=== PATIENT | female | born 1960 | race Caucasian/White ===

== ENCOUNTER 2016-04-20 18:49 | Emergency (ER) | payer OTHER ==
--- NOTE | 2016-04-20 19:15 | ER Document Report ---
ED Medical Screen (RME) - General Stated Complaint: BLOOD SUGAR PROBLEM Time seen by provider: 19:10 Mode of Arrival: Ambulatory Information source: Patient Notes: 55-year-old female presents to ED for elevated blood sugar she is a diabetic type II she states she's taken metformin and Lantus insulin. She states she's had blood sugars as high as 500 at 1830. Her blood sugar has. read on a machine and today he just said high. Blood sugar at noon was 342. The meter read high in RME. The recheck was 562. She states she has been dizzy and thirsty and frequent urination. I have greeted and performed a rapid initial assessment of this patient. A comprehensive ED assessment and evaluation of the patient, analysis of test results and completion of medical decision making process will be conducted by an additional ED providers. TRAVEL OUTSIDE OF THE [place] IN LAST 30 DAYS: No - Related Data Allergies/Adverse Reactions: aspirin [Aspirin] Allergy (Unknown, Verified 04/20/16 19:10) Penicillins Allergy (Unknown, Verified 04/20/16 19:10) prednisone [Prednisone] Allergy (Verified 04/20/16 19:10) Past Medical History - Past Medical History Cardiac Medical History: Reports: Hx Coronary Artery Disease, Hx Hypercholesterolemia, Hx Hypertension Pulmonary Medical History: Reports: Hx Asthma - SINCE AGE 24, Hx COPD Neurological Medical History: Reports: Hx Migraine Endocrine Medical History: Reports: Hx Diabetes Mellitus Type 2 Malignancy Medical History: Reports: Hx Ovarian Cancer GI Medical History: Reports: Hx Gastroesophageal Reflux Disease, Hx Hiatal Hernia - DX MAR 2011, Hx Ulcer Psychiatric Medical History: Reports: Hx Depression Past Surgical History: Reports: Hx Abdominal Surgery - APPENDIX, Hx Appendectomy , Hx Cardiac Catheterization, Hx Cholecystectomy, Hx Gynecologic Surgery, Hx Hysterectomy - Immunizations Immunizations up to date: Yes Hx Diphtheria, Pertussis, Tetanus Vaccination: Yes
[2016-04-20 19:34] LABS: ABSOLUTE BASOPHILS # (AUTO) 0.1 10^3/uL (0.0-0.2); ABSOLUTE EOSINOPHILS # (AUTO) 0.2 10^3/uL (0.0-0.6); ABSOLUTE MONOCYTES (AUTO) 0.7 10^3/uL (0.1-1.4); ABSOLUTE NEUT (AUTO) 5.2 10^3/uL (1.7-8.2); BASOPHILS % (AUTO) 0.6 % (0-2); HEMATOCRIT 42.7 % (36.0-47.0); HEMOGLOBIN 14.3 g/dL (12.0-15.5); HGB HCT DIFFERENCE 0.2; LYMPHOCYTES % (AUTO) 32.6 % (13-45); MEAN CORPUSCULAR HEMOGLOBIN 29.4 pg (27.0-33.4); MEAN CORPUSCULAR HGB CONC 33.5 g/dL (32.0-36.0); MEAN CORPUSCULAR VOLUME 88 fl (80-97); MONOCYTES % (AUTO) 7.3 % (3-13); RED BLOOD COUNT 4.87 10^6/uL (3.72-5.28); RED CELL DISTRIBUTION WIDTH 13.3 % (11.5-14.0); SEGMENTED NEUTROPHILS % (AUTO) 57.5 % (42-78); WHITE BLOOD COUNT 9.1 10^3/uL (4.0-10.5)
[2016-04-20] MEDS: NORMAL SALINE 1000 ML 1,000 ML IV PRN ×2 (19:34→21:00)
[2016-04-20 19:50] LABS: ALANINE AMINOTRANSFERASE 90 U/L (9-52); ALBUMIN 4.3 g/dL (3.5-5.0); ALKALINE PHOSPHATASE 184 U/L (38-126); ANION GAP 14 (5-19); ASPARTATE AMINO TRANSFERASE 40 U/L (14-36); BILIRUBIN,TOTAL 0.8 mg/dL (0.2-1.3); BLOOD UREA NITROGEN 10 mg/dL (7-20); CALCIUM 9.4 mg/dL (8.4-10.2); CARBON DIOXIDE 26 mmol/L (22-30); CHLORIDE 92 mmol/L (98-107); CREATININE RESULT 0.62 mg/dL (0.52-1.25); POTASSIUM 3.3 mmol/L (3.6-5.0); SODIUM 132.4 mmol/L (137-145)
[2016-04-20 19:56] LABS: APPEARANCE,URINE CLEAR; BILIRUBIN,URINE NEGATIVE (NEGATIVE); GLUCOSE, URINE >=500 mg/dL (NEGATIVE); KETONES,URINE NEGATIVE (NEGATIVE); LEUKOCYTE ESTERASE,URINE NEGATIVE (NEGATIVE); NITRITE,URINE NEGATIVE (NEGATIVE); PROTEIN,URINE NEGATIVE (NEGATIVE); URINE SPECIFIC GRAVITY 1.029; UROBILINOGEN,URINE NEGATIVE mg/dL (<2.0)
[2016-04-20 19:58] LABS: GLUCOSE 625 mg/dL (75-110)
[2016-04-20] MEDS ORDERED: INSULIN REG, HUMAN 100 UNIT/ML 3 ML VIAL (PYX) IV ONE (20:49)
--- NOTE | 2016-04-20 21:47 | ER Document Report ---
ED General - General Mode of Arrival: Ambulatory Information source: Patient TRAVEL OUTSIDE OF THE [place] IN LAST 30 DAYS: No - HPI Onset: Other - see HPI <ANDI WILDER - Last Filed: 04/20/16 22:09> <BEAN ZAPIEN - Last Filed: 04/20/16 22:20> - General Chief Complaint: High Blood Sugar Stated Complaint: BLOOD SUGAR PROBLEM Notes: Patient is a 55-year-old female presenting to the emergency department with complaints of high blood glucose levels. Patient has recently been sick with a cough, congestion, and vomiting. Patient states that she is not better the last 4 days. Patient states tonight she felt very woozy and her vision was somewhat blurry. At approximately 1800 tonight her glucose meter said her blood glucose was "too high." Patient states that yesterday her blood sugar was in the 200s. Patient has had her same normal diet. Patient has a slight fever. Patient states that she still has a cough. Otherwise she is feeling much better from been sick. Patient also complains of some dysuria and frequency. Patient takes metformin and Lantus (at night) for her diabetes mellitus. (ANDI WILDER) - Related Data Allergies/Adverse Reactions: aspirin [Aspirin] Allergy (Unknown, Verified 04/20/16 19:10) Penicillins Allergy (Unknown, Verified 04/20/16 19:10) prednisone [Prednisone] Allergy (Verified 04/20/16 19:10) Past Medical History - General Information source: Patient - Social History Smoking Status: Current Every Day Smoker Chew tobacco use (# tins/day): No Frequency of alcohol use: None Drug Abuse: None Family History: None Patient has suicidal ideation: No Patient has homicidal ideation: No - Past Medical History Cardiac Medical History: Reports: Hx Coronary Artery Disease, Hx Hypercholesterolemia, Hx Hypertension Pulmonary Medical History: Reports: Hx Asthma - SINCE AGE 24, Hx COPD Neurological Medical History: Reports: Hx Migraine Endocrine Medical History: Reports: Hx Diabetes Mellitus Type 2 Malignancy Medical History: Reports: Hx Ovarian Cancer GI Medical History: Reports: Hx Gastroesophageal Reflux Disease, Hx Hiatal Hernia - DX MAR 2011, Hx Ulcer Psychiatric Medical History: Reports: Hx Depression Past Surgical History: Reports: Hx Abdominal Surgery - APPENDIX, Hx Appendectomy , Hx Cardiac Catheterization, Hx Cholecystectomy, Hx Gynecologic Surgery, Hx Hysterectomy - Immunizations Immunizations up to date: Yes Hx Diphtheria, Pertussis, Tetanus Vaccination: Yes Hx Pneumococcal Vaccination: 12/24/11 <DAMIONSTEPHANIEANDI - Last Filed: 04/20/16 22:09> Review of Systems - Review of Systems Constitutional: See HPI, Fever, Malaise EENT: See HPI, Blurred vision Cardiovascular: No symptoms reported, Dizziness Respiratory: See HPI, Cough Gastrointestinal: No symptoms reported Genitourinary: No symptoms reported Female Genitourinary: No symptoms reported Musculoskeletal: No symptoms reported Skin: No symptoms reported Hematologic/Lymphatic: No symptoms reported Neurological/Psychological: No symptoms reported -: Yes All other systems reviewed and negative <ANDI WILDER - Last Filed: 04/20/16 22:09> Physical Exam - Vital signs Interpretation: Normal - General General appearance: Appears well, Alert In distress: Mild - HEENT Head: Normocephalic, Atraumatic Eyes: Normal Pupils: PERRL Mucous membranes: Dry - Respiratory Respiratory status: No respiratory distress Chest status: Nontender Breath sounds: Normal Chest palpation: Normal - Cardiovascular Rhythm: Regular Heart sounds: Normal auscultation Murmur: No - Abdominal Inspection: Normal Distension: No distension Bowel sounds: Normal Tenderness: Nontender Organomegaly: No organomegaly - Back Back: Tender - Tenderness to palpation to the upper left back - Extremities General upper extremity: Normal inspection, Normal ROM, Normal strength General lower extremity: Normal inspection, Normal ROM, Normal strength - Neurological Neuro grossly intact: Yes Cognition: Normal Orientation: AAOx4 [place] Coma Scale Eye Opening: Spontaneous [place] Coma Scale Verbal: Oriented [place] Coma Scale Motor: Obeys Commands Kar[place] Coma Scale Total: 15 Speech: Normal - Psychological Associated symptoms: Normal affect, Normal mood - Skin Skin Temperature: Warm Skin Moisture: Dry <ANDI WILDER - Last Filed: 04/20/16 22:09> Course - Laboratory Result Diagrams: 04/20/16 19:23 04/20/16 19:23 <ANDI WILDER - Last Filed: 04/20/16 22:09> - Laboratory Result Diagrams: 04/20/16 19:23 04/20/16 19:23 - Diagnostic Test Radiology reviewed: Image reviewed, Reports reviewed <BEAN ZAPIEN - Last Filed: 04/20/16 22:20> - Re-evaluation Re-evalutation: 04/20/16 22:19 Patient with hyperglycemia but no evidence for acidosis. Patient has received fluids and insulin and feels much better. No evidence for bacterial infection. Patient has had a cough but states that she has been improving. Patient takes Lantus at night and also metformin. Patient states that she was eating chocolate today which usually does not do. Blood sugar currently is at the patient's baseline. Patient would like to go home. She will follow up with her doctor on Saturday. Return if any worsening or concerning symptoms. Stable for discharge home. Understands agrees with plan. (BEAN ZAPIEN) - Vital Signs Vital signs: Temp Pulse Resp BP Pulse Ox 97.3 F 66 18 132/75 H 100 04/20/16 22:04 04/20/16 22:04 04/20/16 19:05 04/20/16 22:04 04/20/16 22:04 (ANDI WILDER) (BEAN ZAPIEN) - Laboratory Laboratory results interpreted by me: 04/20/16 04/20/16 04/20/16 19:23 19:36 21:46 Sodium 132.4 L Potassium 3.3 L Chloride 92 L Glucose 625 H* POC Glucose 289 H AST 40 H ALT 90 H Alkaline Phosphatase 184 H Urine Glucose (UA) >=500 H Urine Blood SMALL H (ANDI WILDER) (BEAN ZAPIEN) Discharge <ANDI WILDER - Last Filed: 04/20/16 22:09> <BEAN ZAPIEN - Last Filed: 04/20/16 22:20> - Discharge Clinical Impression: Hyperglycemia Condition: Stable Disposition: HOME, SELF-CARE Instructions: Hyperglycemia ([facility]) Referrals: OLENA WANG JR, MD [Primary Care Provider] - 04/23/16 Scribe Attestation: 04/20/16 22:20 I personally performed the services described in the documentation, reviewed and edited the documentation which was dictated to the scribe in my presence, and it accurately records my words and actions. (BEAN ZAPIEN) Scribe Documentation - Scribe Written by Scribe:: Andi Wilder 04/20/16 21:50 acting as scribe for :: Goldy <ANDI WILDER - Last Filed: 04/20/16 22:09>
[2016-04-20 22:13] VITALS: BP 132/75
== END 2016-04-20 22:20 | disposition home or self-care (01) ==
LOC: ER 18:49
DX: E11.65 Type 2 diabetes mellitus with hyperglycemia (principal); R05 Cough; R11.10 Vomiting, unspecified; R68.89 Other general symptoms and signs; R30.0 Dysuria; R35.0 Frequency of micturition; F17.200 Nicotine dependence, unspecified, uncomplicated; I25.10 Atherosclerotic heart disease of native coronary artery without angina pectoris; E78.00 Pure hypercholesterolemia, unspecified; I10 Essential (primary) hypertension; J44.9 Chronic obstructive pulmonary disease, unspecified; J45.909 Unspecified asthma, uncomplicated; Z88.0 Allergy status to penicillin; Z88.6 Allergy status to analgesic agent; Z85.43 Personal history of malignant neoplasm of ovary; Z90.49 Acquired absence of other specified parts of digestive tract; Z90.710 Acquired absence of both cervix and uterus
CPT/HCPCS: 99285; 96360; 96361; 36415; 82962; 85025; 80053; 81001; 71020; J1815; J7030